=== PATIENT | female | born 1970 | race Hispanic/Latino ===

== ENCOUNTER 2021-05-21 12:00 | Emergency (ER) | payer SELFPAY ==
[~2021-05-21] VITALS: Ht 167.6 cm; Wt 92.5 kg
[2021-05-21 12:13] VITALS: BP 115/84
[2021-05-21] MEDS ORDERED: HYDROCODONE/ACETAMINOPHEN 10/325 MG TAB PO ONE (12:15)
[2021-05-21] MEDS ORDERED: NAPR-1180 PO (13:14)
[2021-05-21 13:38] VITALS: BP 119/76
== END 2021-05-21 13:38 | disposition home or self-care (01) ==
LOC: EDH 12:00
DX: S93.401A Sprain of unspecified ligament of right ankle, initial encounter (principal); E11.9 Type 2 diabetes mellitus without complications; M79.7 Fibromyalgia; Z79.1 Long term (current) use of non-steroidal anti-inflammatories (NSAID); X58.XXXA Exposure to other specified factors, initial encounter; Y93.89 Activity, other specified; Y92.89 Other specified places as the place of occurrence of the external cause; Y99.8 Other external cause status
CPT/HCPCS: 73610

== ENCOUNTER 2021-08-22 09:38 | Observation (INO) | payer BC ==
[~2021-08-22] VITALS: Ht 167.6 cm; Wt 94.3 kg
[~2021-08-22 09:38] MED LIST: NAPR-1180 PO
[2021-08-22 09:39] VITALS: BP 114/87
[2021-08-22] MEDS ORDERED: ONDANSETRON 4MG INJ IVP SCH (10:00)
[2021-08-22] MEDS ORDERED: MORPHINE 4 MG SYG IM SCH (10:00)
[2021-08-22 10:09] LABS: BASOPHILS % (AUTO) 0.9 % (0.0-5.0); HEMATOCRIT 46.4 % (36-48); LYMPHOCYTES % (AUTO) 28.4 % (21.0-51.0); MEAN CORPUSCULAR HEMOGLOBIN 31.3 pg (27.0-33.0); MEAN CORPUSCULAR HGB CONC 33.4 g/dL (32.0-36.0); MEAN CORPUSCULAR VOLUME 93.5 fL (79-99); MONOCYTES % (AUTO) 7.9 % (3.0-13.0); NEUTROPHILS % (AUTO) 61.4 % (40.0-77.0); PLATELET COUNT (AUTO) 217 K/uL (130-400); RED BLOOD CELL COUNT(AUTO) 4.96 MIL/uL (4.00-5.50); RED CELL DISTRIBUTION WIDTH 12.8 % (11.0-15.5); WHITE BLOOD COUNT (AUTO) 6.9 K/uL (4.8-10.8)
[2021-08-22 10:28] LABS: CREATININE 0.8 mg/dL (0.5-1.5); POTASSIUM 4.2 mmol/L (3.5-5.1)
[2021-08-22 10:37] LABS: ALBUMIN 3.7 g/dL (3.5-5.0); BILIRUBIN,TOTAL 1.1 mg/dL (0.2-1.0)
[2021-08-22 10:45] LABS: APPEARANCE,URINE Clear (CLEAR); BILIRUBIN,URINE Negative (NEGATIVE); COLOR,URINE Yellow (YELLOW); GLUCOSE, URINE (UA) >=1000 mg/dL (NEGATIVE); KETONES,URINE Trace mg/dL (NEGATIVE); LEUKOCYTE ESTERASE ,URINE Negative (NEGATIVE); NITRATE,URINE Negative (NEGATIVE); OCCULT BLOOD,URINE Negative (NEGATIVE); PROTEIN,URINE Negative (NEGATIVE)
[2021-08-22 11:01] LABS: BACTERIA,URINE Few /HPF (None Seen); MUCUS,URINE Moderate LPF (None Seen); RBC,URINE None Seen /HPF (0-1); WBC,URINE None Seen /HPF (0-1)
[2021-08-22] MEDS ORDERED: KETOROLAC 30MG VIAL (30MG/ML) IV SCH (11:57)
[2021-08-22 17:31] VITALS: BP 127/64
[2021-08-22] MEDS ORDERED: LACTATED RINGERS 1000ML 1,000 ML IV SCH (18:00)
[2021-08-22 18:19] LABS: PROTHROMBIN TIME 10.9 SEC (9.6-11.6)
[2021-08-22 18:20] LABS: PARTIAL THROMBOPLASTIN TIME 25.2 SEC (26.3-35.5)
[2021-08-22] MEDS ORDERED: MORPHINE 2 MG SYG IV PRN (18:30)
[2021-08-22] MEDS: METRONIDAZOLE 500 MG TABLET PO SCH (19:30)
[2021-08-22] MEDS: CEFTRIAXONE 1G VIAL IVP SCH (19:30)
[2021-08-22] MEDS: 0.9%NACL 1000ML 1,000 ML IV SCH (19:30)
[2021-08-22 19:55] VITALS: BP 154/90
[2021-08-22] MEDS: FAMOTIDINE 20MG VIAL IV SCH (20:54)
[2021-08-22 22:33] VITALS: BP 112/65
[2021-08-22 23:00] VITALS: BP 119/72
[2021-08-23] MEDS: METRONIDAZOLE 500 MG TABLET PO SCH ×4 (02:30→18:20)
[2021-08-23 03:32] VITALS: BP 123/78
[2021-08-23 05:47] LABS: BASOPHILS % (AUTO) 0.8 % (0.0-5.0); EOSINOPHILS % (AUTO) 1.3 % (0.0-8.0); LYMPHOCYTES % (AUTO) 27.8 % (21.0-51.0); MEAN CORPUSCULAR HEMOGLOBIN 30.6 pg (27.0-33.0); MEAN CORPUSCULAR HGB CONC 32.8 g/dL (32.0-36.0); MEAN CORPUSCULAR VOLUME 93.3 fL (79-99); MONOCYTES % (AUTO) 7.8 % (3.0-13.0); NEUTROPHILS % (AUTO) 62.1 % (40.0-77.0); PLATELET COUNT (AUTO) 191 K/uL (130-400); RED BLOOD CELL COUNT(AUTO) 4.61 MIL/uL (4.00-5.50); RED CELL DISTRIBUTION WIDTH 12.8 % (11.0-15.5)
[2021-08-23 06:14] LABS: CREATININE 0.7 mg/dL (0.5-1.5); MAGNESIUM 1.8 mg/dL (1.80-2.40); PHOSPHORUS 3.8 mg/dL (2.5-4.9); POTASSIUM 4.4 mmol/L (3.5-5.1); THYROID STIMULATING HORMONE 0.39 uIU/mL (0.36-3.74)
[2021-08-23 06:38] LABS: HEMOGLOBIN A1C 11.5 % (4.0-6.0)
[2021-08-23] MEDS ORDERED: LEVO125C4 PO (07:07)
[2021-08-23] MEDS ORDERED: DULO60CA64 PO (07:08)
[2021-08-23 07:30] VITALS: BP 124/70
[2021-08-23] MEDS: 0.9%NACL 1000ML 1,000 ML IV SCH ×2 (07:50→20:55)
[2021-08-23] MEDS: FAMOTIDINE 20MG VIAL IV SCH ×2 (10:40→20:50)
[2021-08-23] MEDS: ENOXAPARIN SODIUM 40 MG/0.4 ML SYRINGE SQ SCH (10:41)
[2021-08-23 11:00] VITALS: BP 127/76
[2021-08-23 16:00] VITALS: BP 128/74
[2021-08-23] MEDS: CEFTRIAXONE 1G VIAL IVP SCH (18:20)
[2021-08-23 20:02] VITALS: BP 116/70
[2021-08-23] MEDS: ONDANSETRON 4MG INJ IV PRN (21:04)
[2021-08-23] MEDS: MORPHINE 2 MG SYG IV PRN (21:08)
[2021-08-23 23:32] VITALS: BP 118/62
[2021-08-24] VITALS (22 sets, daily range): BP systolic 113–150; BP diastolic 58–86
[2021-08-24] MEDS: INSULIN HUMULIN R 100 UNIT/ML 3ML SQ SCH ×4 (00:12→22:41)
[2021-08-24] MEDS: METRONIDAZOLE 500 MG TABLET PO SCH (02:34)
[2021-08-24 05:27] LABS: BASOPHILS % (AUTO) 0.8 % (0.0-5.0); EOSINOPHILS % (AUTO) 1.7 % (0.0-8.0); HEMATOCRIT 43.2 % (36-48); LYMPHOCYTES % (AUTO) 34.2 % (21.0-51.0); MEAN CORPUSCULAR HEMOGLOBIN 30.8 pg (27.0-33.0); MEAN CORPUSCULAR HGB CONC 33.3 g/dL (32.0-36.0); MEAN CORPUSCULAR VOLUME 92.3 fL (79-99); MONOCYTES % (AUTO) 10.4 % (3.0-13.0); NEUTROPHILS % (AUTO) 52.5 % (40.0-77.0); PLATELET COUNT (AUTO) 176 K/uL (130-400); RED BLOOD CELL COUNT(AUTO) 4.68 MIL/uL (4.00-5.50); RED CELL DISTRIBUTION WIDTH 12.7 % (11.0-15.5); WHITE BLOOD COUNT (AUTO) 5.2 K/uL (4.8-10.8)
[2021-08-24 05:42] LABS: BILIRUBIN,TOTAL 1.1 mg/dL (0.2-1.0); CREATININE 0.8 mg/dL (0.5-1.5); POTASSIUM 4.2 mmol/L (3.5-5.1); TOTAL PROTEIN, SERUM 6.6 g/dL (6.0-8.3)
[2021-08-24] MEDS: ENOXAPARIN SODIUM 40 MG/0.4 ML SYRINGE SQ SCH (08:44)
[2021-08-24] MEDS: FAMOTIDINE 20MG VIAL IV SCH ×2 (08:44→21:36)
[2021-08-24] MEDS: ONDANSETRON 4MG INJ IV PRN ×2 (09:05→21:36)
[2021-08-24] MEDS: MORPHINE 2 MG SYG IV PRN (12:28)
[2021-08-24] MEDS: METRONIDAZOLE 500MG/100ML BAG 100 ML IVPB SCH ×2 (14:13→22:19)
[2021-08-24] MEDS ORDERED: SCOPOLAMINE HYDROBROMIDE 1 EACH ADH..PATCH TD ONE (17:52)
[2021-08-24] MEDS ORDERED: LIDOCAINE HCL MPF 1% 5ML VIAL ONE (18:04)
[2021-08-24] MEDS ORDERED: FENTANYL CITRATE PF 50 MCG/1 ML 2ML VIAL ONE (18:05)
[2021-08-24] MEDS ORDERED: PROPOFOL 10 MG/ML 20ML VIAL IV ONE (18:05)
[2021-08-24] MEDS ORDERED: MIDAZOLAM HCL 1 MG/ML 2ML VIAL ONE (18:05)
[2021-08-24] MEDS ORDERED: ROCURONIUM 10MG/1ML SYR 10 MG/ML ML ONE ×2 (18:05→18:26)
[2021-08-24] MEDS ORDERED: SODIUM BICARB [NEONATAL] 4.2% 10ML SYG ONE (18:15)
[2021-08-24] MEDS ORDERED: SODIUM BICARB 8.4% 50ML SYRINGE ONE ×2 (18:15→18:18)
[2021-08-24] MEDS ORDERED: BUPIVACAINE/PF 0.5% 30ML VIAL ONE (18:27)
[2021-08-24] MEDS: CEFTRIAXONE 1G VIAL IVP SCH (18:45)
[2021-08-24] MEDS ORDERED: NEOSTIGMINE 5MG/5ML SYR IV ONE (18:56)
[2021-08-24] MEDS ORDERED: GLYCOPYRROLATE 1 MG/5 ML SYRINGE ONE (18:56)
[2021-08-24] MEDS ORDERED: MEPERIDINE-PF 25 MG/ML SYG ONE (19:33)
[2021-08-24] MEDS: 0.9%NACL 1000ML 1,000 ML IV SCH ×2 (20:27→23:50)
[2021-08-24] MEDS ORDERED: KETOROLAC 30MG VIAL (30MG/ML) IM PRN (21:00)
[2021-08-24] MEDS ORDERED: MORPHINE 4 MG SYG IV PRN (21:00)
[2021-08-24] MEDS: SIMETHICONE 80 MG TAB.CHEW PO SCH (22:19)
[2021-08-25 02:56] VITALS: BP 111/55
[2021-08-25 04:44] LABS: BASOPHILS % (AUTO) 0.4 % (0.0-5.0); EOSINOPHILS % (AUTO) 0.1 % (0.0-8.0); HEMATOCRIT 41.3 % (36-48); LYMPHOCYTES % (AUTO) 18.6 % (21.0-51.0); MEAN CORPUSCULAR HEMOGLOBIN 30.8 pg (27.0-33.0); MEAN CORPUSCULAR HGB CONC 32.9 g/dL (32.0-36.0); MEAN CORPUSCULAR VOLUME 93.4 fL (79-99); MONOCYTES % (AUTO) 8.2 % (3.0-13.0); NEUTROPHILS % (AUTO) 72.5 % (40.0-77.0); PLATELET COUNT (AUTO) 204 K/uL (130-400); RED BLOOD CELL COUNT(AUTO) 4.42 MIL/uL (4.00-5.50); RED CELL DISTRIBUTION WIDTH 12.6 % (11.0-15.5); WHITE BLOOD COUNT (AUTO) 8.3 K/uL (4.8-10.8)
[2021-08-25 04:55] LABS: CREATININE 0.7 mg/dL (0.5-1.5)
[2021-08-25] MEDS ORDERED: BISACODYL 10 MG SUPP.RECT RC PRN (05:30)
[2021-08-25] MEDS: METRONIDAZOLE 500MG/100ML BAG 100 ML IVPB SCH ×2 (05:57→14:20)
[2021-08-25] MEDS: INSULIN HUMULIN R 100 UNIT/ML 3ML SQ SCH ×5 (06:00→12:06)
[2021-08-25] MEDS ORDERED: LEVO500T89 PO (07:02)
[2021-08-25 07:50] VITALS: BP 126/66
[2021-08-25] MEDS ORDERED: DOCUSATE SODIUM 100 MG CAP PO SCH (09:00)
[2021-08-25] MEDS: SIMETHICONE 80 MG TAB.CHEW PO SCH ×2 (09:22→14:20)
[2021-08-25] MEDS: FAMOTIDINE 20MG VIAL IV SCH (09:22)
[2021-08-25] MEDS: ENOXAPARIN SODIUM 40 MG/0.4 ML SYRINGE SQ SCH (09:24)
[2021-08-25] MEDS ORDERED: TRAMADOL HCL 50 MG TABLET PO PRN (09:30)
[2021-08-25 11:31] VITALS: BP 114/66
== END 2021-08-25 16:15 | disposition home or self-care (01) ==
LOC: EDH 09:38 → OBSVTOIN 17:47 → INTOOBSV 17:47 → EDHIP 17:47 → 3CH 22:50 → WSH 08-24 18:25
PROVIDERS: ADMIT Internal Medicine; ATTEND Internal Medicine
DX: K81.0 Acute cholecystitis (principal); Z20.822 Contact with and (suspected) exposure to COVID-19; K57.30 Diverticulosis of large intestine without perforation or abscess without bleeding; E11.65 Type 2 diabetes mellitus with hyperglycemia; E03.9 Hypothyroidism, unspecified; M79.7 Fibromyalgia; K76.0 Fatty (change of) liver, not elsewhere classified; K82.8 Other specified diseases of gallbladder; E66.9 Obesity, unspecified; Z68.33 Body mass index [BMI] 33.0-33.9, adult
CPT/HCPCS: 36415 ×4; 47562; 74176; 76705; 78227; 80048 ×2; 80053 ×2; 81001; 82550; 82948 ×10; 83036; 83690; 83735; 84100; 84443; 84484; 85025 ×4; 85610; 85730; 87635; 93005; 96361 ×6; 96365; 96366 ×2; 96372 ×4; 96375 ×2; 96376 ×3; 99285; A4216; A4222; A4223; A4649 ×3; A4930 ×2; A6206; A6207; A9537; C1769 ×3; G0378 ×70; J0696 ×2; J1650 ×3; J1815 ×4; J1885; J2175; J2250; J2270; J2405 ×4; J2704; J2710; J3010; J3490 ×16; J7030 ×4

== ENCOUNTER 2022-08-21 19:45 | Emergency (ER) | payer BC ==
[~2022-08-21] VITALS: Ht 167.6 cm; Wt 93.4 kg
[~2022-08-21 19:45] MED LIST changes: +DULO60CA64 PO; +LEVO-70 PO; +LEVO125C4 PO
[2022-08-21 20:34] LABS: BASOPHILS % (AUTO) 0.4 % (0.0-5.0); EOSINOPHILS % (AUTO) 0.8 % (0.0-8.0); HEMATOCRIT 44.4 % (36-48); LYMPHOCYTES % (AUTO) 35.8 % (21.0-51.0); MEAN CORPUSCULAR HEMOGLOBIN 31.7 pg (27.0-33.0); MEAN CORPUSCULAR HGB CONC 34.7 g/dL (32.0-36.0); MEAN CORPUSCULAR VOLUME 91.4 fL (79-99); MONOCYTES % (AUTO) 8.9 % (3.0-13.0); NEUTROPHILS % (AUTO) 53.9 % (40.0-77.0); PLATELET COUNT (AUTO) 188 K/uL (130-400); RED BLOOD CELL COUNT(AUTO) 4.86 MIL/uL (4.00-5.50); RED CELL DISTRIBUTION WIDTH 12.5 % (11.0-15.5); WHITE BLOOD COUNT (AUTO) 4.8 K/uL (4.8-10.8)
[2022-08-21 20:48] LABS: CREATININE 0.9 mg/dL (0.5-1.5); POTASSIUM 3.7 mmol/L (3.5-5.1)
[2022-08-21 20:53] LABS: ALBUMIN 3.2 g/dL (3.5-5.0); TOTAL PROTEIN, SERUM 7.2 g/dL (6.0-8.3)
[2022-08-21 20:59] LABS: APPEARANCE,URINE CLEAR (CLEAR); BILIRUBIN,URINE NEGATIVE (NEGATIVE); COLOR,URINE LIGHT-YELLOW (YELLOW); GLUCOSE, URINE (UA) >=1000 mg/dL (NEGATIVE); KETONES,URINE NEGATIVE (NEGATIVE); LEUKOCYTE ESTERASE ,URINE 75 Leu/uL (NEGATIVE); NITRATE,URINE NEGATIVE (NEGATIVE); OCCULT BLOOD,URINE NEGATIVE (NEGATIVE); PH,URINE 5.5 (5.0-8.0); PROTEIN,URINE NEGATIVE (NEGATIVE); UROBILINOGEN,URINE 0.2 mg/dL (0.2-1.0)
[2022-08-21] MEDS ORDERED: MORPHINE 4 MG SYG IVP ONE (21:00)
[2022-08-21] MEDS ORDERED: ONDANSETRON 4MG INJ IVP ONE (21:00)
[2022-08-21] MEDS ORDERED: 0.9%NACL 1000ML 1,000 ML IV ONE (21:00)
[2022-08-21 21:06] LABS: BACTERIA,URINE RARE /HPF (None Seen); OTHER CASTS, URINE 2 /LPF (None Seen); SQUAMOUS EPITHELIAL CELL,UR MOD /HPF (0-2)
[2022-08-21] MEDS ORDERED: IOHEXOL 350 MG/ML 100ML INFUS..BTL IV ONE (21:25)
[2022-08-21] MEDS ORDERED: POLY17PO4 PO (22:56)
[2022-08-21 23:12] VITALS: BP 135/75
== END 2022-08-21 23:23 | disposition home or self-care (01) ==
LOC: EDH 19:45
DX: R10.31 Right lower quadrant pain (principal); K59.00 Constipation, unspecified; E11.9 Type 2 diabetes mellitus without complications; E03.9 Hypothyroidism, unspecified; Z98.890 Other specified postprocedural states; Z90.49 Acquired absence of other specified parts of digestive tract; Z79.899 Other long term (current) drug therapy
CPT/HCPCS: 99285; 74177; 96374; 96361; 96375; 84484; 80053; 83690; 85025; 87088; 81001; 81025; 36415; 93005; J7030; J2405; J2270; Q9967

== ENCOUNTER 2024-08-19 16:59 | Emergency (ER) | payer BC ==
[~2024-08-19] VITALS: Ht 167.6 cm; Wt 82.6 kg
[~2024-08-19 16:59] MED LIST changes: +POLY17PO4 PO
[2024-08-19 18:47] VITALS: BP 124/66; PULSE 98; RESP 16; TEMP 98.6; O2SAT 99
[2024-08-19] MEDS: TRIAMCINOLONE ACETONIDE 40 MG/ML 1ML VIAL IM ONE (18:56)
[2024-08-19] MEDS: ketOROlac 30MG VIAL (30MG/ML) IM ONE (18:56)
[2024-08-19] MEDS: ORPHENADRINE 60MG/2ML IM ONE (18:56)
[2024-08-19] MEDS ORDERED: KETO10TA2 PO (19:08)
[2024-08-19] MEDS ORDERED: CYCL10TA16 PO (19:08)
== END 2024-08-19 19:24 | disposition home or self-care (01) ==
LOC: EDH 16:59
DX: S39.012A Strain of muscle, fascia and tendon of lower back, initial encounter (principal); E11.9 Type 2 diabetes mellitus without complications; E03.9 Hypothyroidism, unspecified; Z79.899 Other long term (current) drug therapy; Z90.49 Acquired absence of other specified parts of digestive tract; Z98.890 Other specified postprocedural states; X58.XXXA Exposure to other specified factors, initial encounter; Y93.89 Activity, other specified; Y92.89 Other specified places as the place of occurrence of the external cause; Y99.8 Other external cause status
CPT/HCPCS: 99284; 96372 ×3; J3301; J1885; J2360